=== PATIENT | male | born 1955 | race Caucasian/White ===

== ENCOUNTER 2023-05-01 07:45 | Outpatient (RCR) | payer OTHER, SELFPAY ==
--- NOTE | 2023-05-03 | CR1_ITS ---
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
== END 2023-05-03 14:48 | disposition home or self-care (01) ==
LOC: CR 07:45
DX: Z95.811 Presence of heart assist device (principal)
CPT/HCPCS: 93798

== ENCOUNTER 2023-06-28 07:03 | Outpatient (RCR) | payer OTHER, SELFPAY ==
--- NOTE | 2023-05-11 08:11 | CR1_ITS ---
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
--- NOTE | 2023-06-08 13:04 | CR1_ITS ---
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
== END 2023-06-28 07:44 | disposition home or self-care (01) ==
LOC: CR 07:03
DX: Z95.811 Presence of heart assist device (principal)
CPT/HCPCS: 93798

== ENCOUNTER 2023-11-10 07:17 | Outpatient (RCR) | payer OTHER, SELFPAY ==
--- NOTE | 2023-07-27 08:43 | CR1_ITS ---
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
--- NOTE | 2023-08-23 15:50 | CR1_ITS ---
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
--- NOTE | 2023-09-22 10:29 | CR1_ITS ---
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
--- NOTE | 2023-10-23 14:42 | CR1_ITS ---
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
== END 2023-11-10 14:20 | disposition home or self-care (01) ==
LOC: CR 07:17
DX: Z95.811 Presence of heart assist device (principal)
CPT/HCPCS: 93798

== ENCOUNTER 2023-12-16 12:50 | Emergency (ER) | payer OTHER, SELFPAY ==
[2023-12-16 12:51] VITALS: PULSE 69; RESP 24; TEMP 36.6; O2SAT 90; BMI 37.7
--- OUTSIDE RECORDS SUMMARY | 2023-12-16 12:52 | XMS_ITS | CCD ---
Author Name Unknown Address [address] [place] [address] Organization [facility] Care Team Providers Care Bulldozer/Loader/Compactor/Scraper Name Role Phone RADHA FERNANDEZ Referring Unavailable HENRY SEGURA Primary Care Unavailable Henry Segura Primary Care Provider MISC, DR FONSECA Admitting Unavailable MISC, DR FONSECA Attending Unavailable MISC, DR FONSECA Primary Care Unavailable MISC, DR FONSECA Consulting Unavailable MISC, DR FONSECA Admitting Unavailable MISC, DR FONSECA Attending Unavailable MISC, DR FONSECA Primary Care Unavailable MISC, DR FONSECA Consulting Unavailable Medications Current Medications Medication Drug Class(es) Dates Sig (Normalized) Sig (Original) allopurinol 100 mg oral tablet (1 source) Xanthine Oxidase Inhibitor take 2 tablets by mouth once daily in the evening allopurinol (ZYLOPRIM) 100 MG tablet Take 200 mg by mouth every evening 0 Active amiodarone hydrochloride 200 mg oral tablet (1 source) Antiarrhythmic take 1 tablet by mouth once daily amiodarone (CORDARONE) 200 MG tablet Take 200 mg by mouth daily. 0 Active aspirin 81 mg oral tablet (1 source) Platelet Aggregation Inhibitor, Nonsteroidal Anti-inflammatory Drug take 1 tablet by mouth once daily in the evening aspirin 81 MG tablet Take 81 mg by mouth every evening 0 Active atorvastatin 40 mg oral tablet (1 source) HMG-CoA Reductase Inhibitor take 1 tablet by mouth once daily in the evening atorvastatin (LIPITOR) 40 MG tablet Take 40 mg by mouth every evening 0 Active carvedilol 25 mg oral tablet (1 source) alpha-Adrenergic Ngoc, beta-Adrenergic Ngoc take 1 tablet by mouth twice daily at mealtime carvedilol (COREG) 25 MG tablet Take 25 mg by mouth 2 times daily (with meals) 0 Active cholecalciferol 5000 unt oral tablet (1 source) Vitamin D take 1 tablet by mouth twice daily Cholecalciferol (VITAMIN D3) 5000 UNITS TABS Take 1 each by mouth 2 times daily Taking 1000 units twice a day 0 Active citalopram 20 mg oral tablet (1 source) Serotonin Reuptake Inhibitor take 1 tablet by mouth twice daily citalopram (CELEXA) 20 MG tablet Take 20 mg by mouth 2 times daily 0 Active clopidogrel 75 mg oral tablet (1 source) P2Y12 Platelet Inhibitor Start: 01-08-2015 take 1 tablet by mouth once daily clopidogrel (PLAVIX) 75 MG tablet Take 1 tablet by mouth daily. 30 tablet 3 01/08/2015 Active diphenhydrAMINE-APAP , sleep, (TYLENOL PM EXTRA STRENGTH PO) (1 source) diphenhydrAMINE- APA P, sleep, (TYLENOL PM EXTRA STRENGTH PO) Take by mouth nightly 0 Active furosemide 80 mg oral tablet (1 source) Loop Diuretic take 1 tablet by mouth once daily furosemide (LASIX) 80 MG tablet Take 80 mg by mouth daily 0 Active 24 hr isosorbide mononitrate 30 mg extended release oral tablet (1 source) Nitrate Vasodilator take 1 tablet by mouth once daily in the evening isosorbide mononitrate (IMDUR) 30 MG CR tablet Take 30 mg by mouth every evening. 0 Active levothyroxine sodium 0.088 mg oral tablet (1 source) l-Thyroxine take 2 tablets by mouth once daily levothyroxine (SYNTHROID) 88 MCG tablet Take 88 mcg by mouth Daily One tab Monday thru Monday and 2 tabs Monday and monday 0 Active lisinopril 5 mg oral tablet (1 source) Angiotensin Converting Enzyme Inhibitor take 2.5 mg by mouth once daily in the evening lisinopril (PRINIVIL;ZESTRIL) 5 MG tablet Take 2.5 mg by mouth every evening 0 Active potassium chloride 20 meq powder for oral solution (1 source) take 20 mEq by mouth twice daily potassium chloride (KLOR-CON) 20 MEQ packet Take 20 mEq by mouth 2 times daily. 0 Active 1000 ml sodium chloride 9 mg/ml injection (1 source) Start: 10-10-2019 0.9 % sodium chloride infusion spironolactone 25 mg oral tablet (1 source) Aldosterone Antagonist take 1 tablet by mouth once daily in the evening spironolactone (ALDACTONE) 25 MG tablet Take 25 mg by mouth every evening 0 Active Completed/Discontinued Medications Medication Drug Class(es) Dates Sig (Normalized) Sig (Original) cephalexin 500 mg oral capsule (1 source) Cephalosporin Antibacterial Start: 09-09-2015 End: 10-10-2019 take 1 capsule by mouth twice daily cephALEXin (KEFLEX) 500 MG capsule Take 1 capsule by mouth 2 times daily 10 capsule 0 09/09/2015 10/10/2019 Discontinued (LIST CLEANUP) 1000 ml glucose 500 mg/ml injection (1 source) Start: 10-10-2019 End: 10-10-2019 dextrose 50 % IV solution Start: 10-10-2019 End: 10-10-2019 dextrose 50 % IV solution nitroglycerin 0.4 mg sublingual tablet (1 source) Nitrate Vasodilator Start: 01-08-2015 End: 10-10-2019 nitroGLYCERIN (NITROSTAT) 0.[address] 1 tablet under the tongue every 5 minutes as needed for Chest pain. 25 tablet 3 01/08/2015 10/10/2019 Discontinued traMADol hydrochloride 50 mg oral tablet (1 source) Opioid Agonist End: 10-10-2019 take 1 tablet by mouth every six hours as needed for pain traMADol (ULTRAM) 50 MG tablet Take 50 mg by mouth every 6 hours as needed for Pain. 0 10/10/2019 Discontinued (LIST CLEANUP) Problems Active Problems Problem Classification Problem Date Documented Date Episodic/Chronic Cardiac dysrhythmias (1 source) Atrial fibrillation; Translations: [Atrial fibrillation] Onset: 12-10-2013 12-10-2013 Chronic Conduction disorders (1 source) Automatic implantable cardiac defibrillator in situ; Translations: [AICD (automatic cardioverter/defibri llator) present] Onset: 06-08-2015 06-08-2015 Chronic Other circulatory disease (4 sources) Presence of heart assist device; Translations: [PRESENCE OF HEART ASSIST DEVICE] Onset: 08-03-2022 Chronic Unclassified (1 source) History of cardiac catheterization; Translations: [S/P cardiac cath] Onset: 06-08-2015 06-08-2015 Past or Other Problems Problem Classification Problem Date Documented Da te Episodic/Chronic Coronary atherosclerosis and other heart disease (1 source) History of placement of stent for coronary artery disease; Translations: [S/P drug eluting coronary stent placement] Onset: 06-08-2015 06-08-2015 Episodic Results Test Name Value Interpretation Reference Range Facil it SURGICAL PATHOLOGYon 021 SURGICAL PATHOLOGY Specimen #: [id number] Submitting Physician: Erika CHIACS MD FINAL DIAGNOSIS Left ventricular apex, assist device placement: - 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 COMMENT Microscopic examination shows a segment of myocardium which is transmural. The epicardium is unremarkable. The compact zone of the myocardium has been replaced by dense fibrous tissue. The trabecular myocardium shows thickened endocardium, which in the Movat stain shows endocardial fibroelastosis and is interpreted as an old healed myocardial infarction with organized thrombus leading to fibroelastosis of the endocardium. There is no evidence of inflammatory infiltrates, giant cells or granulomata consistent with myocarditis. ERR/kmr 03/30/2021 Contreras Hinojosa (L25) (Electronic Signature) ____ SPECIMEN SUBMITTED A: 2 SLIDES ([id number]) CLINICAL DATA None provided. Patient ID #: Date of Report: 03/31/2021 Date of Procedure: 03/24/2021 Date of Receipt: 03/24/2021 Submitted by: Erika CHICAS MD Location: Diagnostic interpretation performed at [facility], [address] [place] [address]. CLIA Number: [id number] Normal [facility] Reference Lab Comment on above: Performed By: #### S #### See report for performing lab information. CHLORIDE (POC)on 10-10-2019 Chloride [Moles/Vol] 103 mmol/L 98 - 107 mmol/L [employer], [email or web address] Creatinine W/GFR Point of Ca reon 10-10-2019 Creatinine [Mass/Vol] 1.5 mg/dL High 0.51 - 1.19 mg/dL [place], [place] GFR Non- 48 mL/min Low >60 [place] GFR/1.73 sq M predicted among non-blacks MDRD (S/P/Bld) [Vol rate/Area] 58 mL/min/{1.73_m2} Low >60 [place], [place] GFR/1.73 sq M predicted among non-blacks MDRD (S/P/Bld) [Vol rate/Area] [place], [place] Comment on above: Average GFR for 60-6 9 years old: 85 mL/min/1.73sq m Chronic Kidney Disease: <60 mL/min/1.73sq m Kidney failure: <15 mL/min/1.73sq m eGFR calculated using average adult body mass. Additional eGFR calculator available at: http://www.Jostle/multiple_crcl_2012.htm Diagnostic Cardiac Fur Remodeler Procedureon 10-10-2019 Doron, Renan Incoming Cardio Results From [facility]/ - 10/10/2019 2:50 PM EST Cardiac Diagnostic Report Demographics Patient HARMEET Mistry Date of Study 10/10/2019 Name Date of 1955 Gender Male Age 63 year(s) Race Room [id number] Height: 66 inch, 167.64 cm Number Corporate [id number] Weight: 224 pounds, 101.6 kg ID # Patient [id number] BSA: 2.1 m^2 BMI: 36.15 kg/m^2 Acct # MR # [id number] [facility] Referring # Physician Assisting Physician Additional Comments H&P reviewed and patient examined by performing physician prior to the procedure on 10/10/19 at 0900 No changes noted. If changes, see note below. Mallampati Classification 2 / ASA Classification III : per Physician . Patient medications reviewed by Physician prior to procedure. Procedure Procedure Type: Diagnostic procedure: Rt & Lt Heart Cath, Coronary Angios, LVgram Complications: - No complication Indications: - Angina - Unstable - Previous stent placement - Cardiomyopathy Conclusions Procedure Summary Patent LAD stent. Minimal CAD. Severely impaired ventricular function. Severe pulmonary hypertension. Recommendations Medical therapy as needed. Risk factor modification. Signature - - Angiographic Findings Cardiac Arteries and Lesion Findings LMCA: Normal 0% stenosis. LAD: Mild irregularities 20-30%.with patent proximal stent LCx: Mild irregularities 10-20%. RCA: Mild irregularities 20-30%. Coronary Tree Dominance: Left LV Analysis LV function assessed as:Abnormal. Ejection Fraction + --------+--- + !Method !EF%! + --------+--- + !LV gram !15 ! + --------+--- + LV Segment Contractility 1 - Normal 3 - Mild 5 - Severe 7 - Dyskinesis hypokinesis hypokinesis 2 - 4 - Moderate 6 - Akinesis 8 - Aneurysm Hypokinesis hypokinesis Procedure Data Procedure Start Time: 10/10/2019 12:43. The procedure was explained in detail to the patient. Risks, complications and alternative treatments were reviewed. Written consent was obtained. Diagnostic Cath Status: Urgent Entry Locations - Retrograde Percutaneous access was performed through the Right Femoral vein. A 7 Fr sheath was inserted. Hemostasis was successfully obtained using Manual Compression. - Retrograde Percutaneous access was performed through the Right Femoral artery. A 6 Fr sheath was inserted. Hemostasis was successfully obtained using Mynx (Access). Procedure Medications: - Lidocaine HCl 1% 10mg/ml S.Q. 20 ml. - Versed I.V. 2 mg. - Fentanyl I.V. 50 mcg. Catheters and Wires: - 7F Pulmonary Wedge Pressure Catheter was used for Right heart cath. - 6F Catheter JL 4 was used for Left coronary angiography. - 6F Catheter JR 4 was used for Left ventriculography. - 6F Catheter JR 4 was used for Right coronary angiography. Contrast Material: - Optiray 13434 ml Fluoroscopy Time: Diagnostic: 3:42 minutes. Total: 3:42 minutes. Estimated Blood Loss: 10 ml. Medical History Allergies - *No Known Allergies. Risk Factors The patient risk factors include:treated hypercholesterolemia, treated hypertension, untreated diabetes mellitus, last creatinine: 1.5 mg/dl, creatinine clearance: 73.38 ml/min and former tobacco use. Admission Data Admission Date: 10/10/2019 Admission Status: Outpatient. -The patient's anginal syndrome was assessed as CCS III according to the Swain clinical classification. Hemodynamics Condition: Baseline Room Air Estimated: 238.36Heart Rate: 60 bpm Oxygen Saturation +--------+-----+----+ -+---+ + !Location!pCO2 !pO2 !% Saturation !Hgb!O2 Content ! +--------+-----+----+ -+---+ + !FA ! ! !88.9 ! ! ! +--------+-----+----+ -+---+ + !RA ! ! !55 ! ! ! +--------+-----+----+ -+---+ + !PA ! ! !54.9 ! ! ! +--------+-----+----+ -+---+ + Pressure +-----+ + !Site !Pressure ! +-----+ + !AO !94/55 (71) ! +-----+ + !AO !97/57 (74) ! +-----+ + !LV ! ,21 ! +-----+ + !LV ! ,20 ! +-----+ + !PA ! (37) ! +-----+ + !PCW ! (23) ! +-----+ + !RA !10/28 (9) ! +-----+ + !RV !60/8 ,11 ! +-----+ + Cardiac Output +------+ + +---- + !Method!CO (l/min) !CI (l/min/m2) !SV (ml) ! +------+ + +---- + !Pat !3.6 !1.7 !59.62 ! +------+ + +---- + Valve Gradients and Areas + +--------+ --------+--------+--- ------+ +--- + !Valve !Peak !Mean !Area !Index !Flow !Source ! + +--------+ --------+--------+--- ------+ +--- + !Aortic !0 !0 ! ! !280.59 !Pat ! + +--------+ --------+--------+--- ------+ +--- + !Aortic !0 !0 ! ! ! ! ! + +--------+ --------+--------+--- ------+ +--- + Shunts Oxygen Values O2 Bsoguczd505.48O2 Devexoonfxp873.36 Flows (l/min) Qs3.62 Vascular Resistance + ------+-------+------ -+------+------+----- ----+------- + !CO method !TSVR !SVR !TPVR !PVR !TPVR/TSVR!PVR/SVR! + ------+-------+------ -+------+------+----- ----+------- + !Qp or Qs !1633.29!1444.75! ! ! ! ! + ------+-------+------ -+------+------+----- ----+------- + !Pat !1642.36!1452.78!831. 25!315.28!0.51 !0.22 ! + ------+-------+------ -+------+------+----- ----+------- + Imagiin. [facility] [place] [place] Cardiac Diagnostic Report Demographics Patient HARMEET Mistry Date of Study 10/10/2019 Name Date of 1955 Gender Male Age 63 year(s) Race Room [id number]^CLIF Height: 66 inch, 167.64 cm Number Corporate [id number] Weight: 224 pounds, 101.6 kg ID # Patient [id number] BSA: 2.1 m^2 BMI: 36.15 kg/m^2 Acct # MR # [id number] Performing Radha Fernandez Physician Referring # Physician Assisting Physician Additional Comments H&P reviewed and patient examined by performing physician prior to the procedure on 10/10/19 at 0900 No changes noted. If changes, see note below. Mallampati Classification 2 / ASA Classification III : per Physician . Patient medications reviewed by Physician prior to procedure. Procedure Procedure Type: Diagnostic procedure: Rt & Lt Heart Cath, Coronary Angios, LVgram Complications: - No complication Indications: - Angina - Unstable - Previous stent placement - Cardiomyopathy Conclusions Procedure Summary Patent LAD stent. Minimal CAD. Severely impaired ventricular function. Severe pulmonary hypertension. Recommendations Medical therapy as needed. Risk factor modification. Signature - - Angiographic Findings Cardiac Arteries and Lesion Findings LMCA: Normal 0% stenosis. LAD: Mild irregularities 20-30%.with patent proximal stent LCx: Mild irregularities 10-20%. RCA: Mild irregularities 20-30%. Coronary Tree Dominance: Left LV Analysis LV function assessed as:Abnormal. Ejection Fraction + --------+---+ !Method !EF%! + --------+---+ !LV gram !15 ! + --------+---+ LV Segment Contractility 1 - Normal 3 - Mild 5 - Severe 7 - Dyskinesis hypokinesis hypokinesis 2 - 4 - Moderate 6 - Akinesis 8 - Aneurysm Hypokinesis hypokinesis Procedure Data Procedure Start Time: 10/10/2019 12:43. The procedure was explained in detail to the patient. Risks, complications and alternative treatments were reviewed. Written consent was obtained. Diagnostic Cath Status: Urgent Entry Locations - Retrograde Percutaneous access was performed through the Right Femoral vein. A 7 Fr sheath was inserted. Hemostasis was successfully obtained using Manual Compression. - Retrograde Percutaneous access was performed through the Right Femoral artery. A 6 Fr sheath was inserted. Hemostasis was successfully obtained using Mynx (Access). Procedure Medications: - Lidocaine HCl 1% 10mg/ml S.Q. 20 ml. - Versed I.V. 2 mg. - Fentanyl I.V. 50 mcg. Catheters and Wires: - 7F Pulmonary Wedge Pressure Catheter was used for Right heart cath. - 6F Catheter JL 4 was used for Left coronary angiography. - 6F Catheter JR 4 was used for Left ventriculography. - 6F Catheter JR 4 was used for Right coronary angiography. Contrast Material: - Optiray 02615 ml Fluoroscopy Time: Diagnostic: 3:42 minutes. Total: 3:42 minutes. Estimated Blood Loss: 10 ml. Medical History Allergies - *No Known Allergies. Risk Factors The patient risk factors include:treated hypercholesterolemia, treated hypertension, untreated diabetes mellitus, last creatinine: 1.5 mg/dl, creatinine clearance: 73.38 ml/min and former tobacco use. Admission Data Admission Date: 10/10/2019 Admission Status: Outpatient. -The patient's anginal syndrome was assessed as CCS III according to the Swain clinical classification. Hemodynamics Condition: Baseline Room Air Estimated: 238.36Heart Rate: 60 bpm Oxygen Saturation +--------+-----+----+ -+---+ + !Location!pCO2 !pO2 !% Saturation !Hgb!O2 Content ! +--------+-----+----+ -+---+ + !FA ! ! !88.9 ! ! ! +--------+-----+----+ -+---+ + !RA ! ! !55 ! ! ! +--------+-----+----+ -+---+ + !PA ! ! !54.9 ! ! ! +--------+-----+----+ -+---+ + Pressure +-----+ + !Site !Pressure ! +-----+ + !AO !94/55 (71) ! +-----+ + !AO !97/57 (74) ! +-----+ + !LV !96/13 ,21 ! +-----+ + !LV !96/ ,20 ! +-----+ + !PA !58/23 (37) ! +-----+ + !PCW !24 (23) ! +-----+ + !RA !12/9 (9) ! +-----+ + !RV !60/8 ,11 ! +-----+ + Cardiac Output +------+ + +---- + !Method!CO (l/min) !CI (l/min/m2) !SV (ml) ! +------+ + +---- + !Pat !3.6 !1.7 !59.62 ! +------+ + +---- + Valve Gradients and Areas + +--------+ --------+--------+--- ------+ +--- + !Valve !Peak !Mean !Area !Index !Flow !Source ! + +--------+ --------+--------+--- ------+ +--- + !Aortic !0 !0 ! ! !280.59 !Pat ! + +--------+ --------+--------+--- ------+ +--- + !Aortic !0 !0 ! ! ! ! ! + +--------+ --------+--------+--- ------+ +--- + Shunts Oxygen Values O2 Hyuhssfu500.48O2 Gqmvarcbjro601.36 Flows (l/min) Qs3.62 Vascular Resistance + ------+-------+------ -+------+------+----- ----+-------+ !CO method !TSVR !SVR !TPVR !PVR !TPVR/TSVR!PVR/SVR! + ------+-------+------ -+------+------+----- ----+-------+ !Qp or Qs !1633.29!1444.75! ! ! ! ! + ------+-------+------ -+------+------+----- ----+-------+ !Pat !1642.36!1452.78!831. 25!315.28!0.51 !0.22 ! + ------+-------+------ -+------+------+----- ----+-------+ [place], [place] Hemoglobin and hematocrit, b loodon 10-10-2019 Hematocrit (Bld) [Volume fraction] 42 % 41 - 53 % [place] Hemoglobin (Bld) [Mass/Vol] 14.3 g/dL 13.5 - 17.5 g/dL [place] Otheron 10-10-2019 Interpretation and review of laboratory results Abnormal [place], [place] POC Glucose Fingerstickon Glucose [Mass/Vol] 77 mg/dL 75 - 110 mg/dL [place] Glucose [Mass/Vol] 116 mg/dL High 75 - 110 mg/dL [place] Interpretation and review of laboratory results Abnormal [place] POCT Glucoseon 10-10-2019 Glucose [Mass/Vol] 65 mg/dL Low 74 - 100 mg/dL [place] POTASSIUM (POC)on 10-10-2019 Potassium [Moles/Vol] 4.3 mmol/L 3.5 - 4.5 mmol/L [place] Platelet Counton 10-10-2019 Platelets (Bld) [#/Vol] 165 10*3/uL Normal 138-453 [facility] Comment on above: Performed By: #### P LT #### [facility] [email or web address] [address] [place] [id number] Exhibit Carpenter: Smith Marquez MD Platelet counton 10-10-2019 Platelets (Bld) [#/Vol] 165 10*3/uL [place] SODIUM (POC)on 10-10-2019 Sodium [Moles/Vol] 139 mmol/L 138 - 146 mmol/L [place], [place] Vital Signs Date Time Vital Sign Value Performing Clinician Catrina carranza 10-10-2019 16:00-0500 BP Diastolic 78 mm[Hg] [facility] [place] 10-10-2019 16:00-0500 BP Systolic 112 mm[Hg] [facility] [place] 10-10-2019 16:00-0500 Pulse (Heart Rate) 61 /min [facility] [place] 10-10-2019 16:00-0500 Pulse Oximetry 98 % [facility] , [place] 10-10-2019 16:00-0500 Respiratory Rate 17 /min [facility], [place] 10-10-2019 10:30-0500 BMI (Body Mass Index) 36.15 kg/m2 [facility], [place] 10-10-2019 10:30-0500 Body Temperature 97.39 [degF] [facility], [place] 10-10-2019 10:30-0500 Body weight 101.61 kg [facility] , [place] 10-10-2019 10:30-0500 Height 167.6 cm [facility] , [place] Encounters Encounter Date Encounter Type Care Provider Facility Start: 03-08-[address] DOCTOR BLANTON Facility :[facility] Start: 08-03-2022 End: 11-08-[address] DOCTOR BLANTON Facility: Start: 10-10-2019 End: 10-11-2019 Patient encounter procedure RADHA FERNANDEZ [facility] Start: 10-10-2019 End: 10-10-2019 Subsequent hospital visit by physician [place] [facility] Rm A [facility] Comment on above: Arrived Procedures Date Procedure Procedure Detail Performing Clinician Start: 10-11-2019 DIET NPO, SPECIFIED TIME TARNAYE JIM Start: 10-10-2019 COAL YARD SUPERVISOR REPORT TARNAYE STEINER Start: 10-10-2019 Glucose blood reagen t strip TARIF JIM Start: 10-10-2019 COAL YARD SUPERVISOR REPORT [facility] Start: 10-10-2019 R & l hrt cath w/njx l ventriculog img s&i TARNAYE JIM Start: 10-10-2019 Glucose blood reagen t strip Radha Fernandez Work Phone: Start: 10-10-2019 COAL YARD SUPERVISOR REPORT [facility] Start: 10-10-2019 Blood count platelet automated TARIF JIM Start: 10-10-2019 Blood count hemoglobin TARIF JIM Start: 10-10-2019 Chloride other source T ARIF JIM Start: 10-10-2019 CREATININE W/GFR POI NT OF CARE TARIF JIM Start: 10-10-2019 Gluc bld gluc mntr d ev cleared fda spec home use TARNAYE FERNANDEZ Start: 10-10-2019 Potassium serum plasma/whole blood TARNAYE FERNANDEZ Start: 10-10-2019 Sodium serum plasma or whole blood RADHA FERNANDEZ Start: 10-10-2019 DIAGNOSTIC CARDIAC C ATH LAB PROCEDURE Radha Fernandez Work Phone: Start: 10-10-2019 FULL CODE RADHA SALTER Start: 10-10-2019 POC CHEMISTRY (NA,K,ICA,GLU,CALC HCT/HGB,LACTATE,CREA,CL) RADHA FERNANDEZ Start: 10-10-2019 VERIFY INFORMED CONSENT RADHA FERNANDEZ Start: 10-10-2019 Glucose blood reagen t strip Radha Hernándezn Work Phone: Start: 10-10-2019 Blood count platelet automated Radha Patel [employer] Work Phone: Start: 10-10-2019 Blood count hemoglobin Tarif A [employer] Work Phone: Start: 10-10-2019 Chloride [Moles/Vol] Ta rif A [employer] Work Phone: Start: 10-10-2019 CREATININE W/GFR POI NT OF CARE Tarnaye Fernandez Work Phone: Start: 10-10-2019 Gluc bld gluc mntr d ev cleared fda spec home use Tarif A Jim Work Phone: Start: 10-10-2019 Potassium [Moles/Vol] T arif A [employer] Work Phone: Start: 10-10-2019 Sodium [Moles/Vol] Maryellen f A [employer] Work Phone: Plan of Treatment Date Care Activity Detail Author Start: 10-10-2020 Creatinine monitoring Creatinine mon itoring [place], [place] Start: 10-10-2020 Potassium monitoring Potassium monit [place]ing [place] Start: 05-12-2019 Annual Wellness Visi t (AWV) Annual Wellness Visit (AWV) [place], [place] Start: 2006 Colon cancer screen colonoscopy Colon cancer screen colonoscopy [place], [place] Start: 2006 Shingles Vaccine (1 of 2) Shingles Vaccine (1 of 2) [place], [place] Start: 1996 Diabetes screen Diabetes screen [place], [place] Start: 1971 HIV screen HIV screen [place], [place] Start: 1967 DTaP/Tdap/Td vaccine (1 - Tdap) DTaP/Tdap/Td vaccine (1 - Tdap) [place], [place] Start: 1966 Lipid screen Lipid screen [place], [place] Start: 1956 Hepatitis C screen Hepatitis C scree n [place], [place] Start: 1956 TSH testing TSH testing [place], [place] Payers Date Payer Category Payer Unknown [id number] 2018 Private Health Insurance [id number] 2014 Medicare [id number] 2014 Medicare xxxxxxxxxxx [id number] 1959 Medicare [id number] 1955 Unknown [id number] 1955 Unknown [id number] 1955 Unknown [id number] Social History Date Type Detail Facility Start: 10-10-2019 Tobacco smoking stat us [facility] Former smoker [place], [place] Start: 10-10-2019 Alcohol intake Current drinke r of alcohol (finding) [place] Start: 12-10-2013 Tobacco Comment quit 2000 [place], [place] Start: 10-10-2019 Alcohol Comment OCCASIONAL [place], [place] Sex Assigned At Not on file [place], [place] Summary Purpose Family History No Family History Records FoundNo Family History Records FoundNo Family History Records Found Advance Directives No Advanced Directives Records FoundDocuments on File Type Date Recorded Patient Parent Partner Expl anation Advance Directives and Living Will Power of Bereavement Program Coordinator Latest Code Status on File Code Status Date Activated Date Inactivated Comments Full Code 10/10/2019 10:15 AM Full Code 09/09/2015 5:55 PM 09/09/2015 9:44 PM Full Code 09/09/2015 1:57 PM 09/09/2015 5:55 PM Full Code 09/09/2015 1:56 PM 09/09/2015 1:57 PM Full Code 06/08/2015 12:13 PM 06/09/2015 3:10 AM Discharge Instructions * Instructions* Chelle Scott RN - 10/10/2019 Discharge Instructions for angiogram Home Care Ok to shower in AM. Discontinue band aid in AM. Do not apply further band aids. Keep clean, dry and open to air. No powder or lotion. Do not soak in a pool or tub and do not swim for one week. If there is any bleeding at the catheter site, apply firm pressure with your hands until the bleeding stops. If bleeding continues after 3 minutes call 911. If there is any swelling or firm areas at your puncture site, this could be bleeding under the skin(hematoma), and if you have any concerns seek help immediately. Drink plenty of fluids after the test. This will flush the x-ray dye from your system. Return to your normal diet. The sedative will make you sleepy. Rest until the effects have worn off. Ask your doctor when you will be able to return to work. Avoid heavy lifting objects greater than 10 pounds, physically demanding activities, and sexual activity for 5-7 days. Your activity will also depend upon where the catheter was inserted: Do not sit for long periods oftime. Try to change positions frequently. Medications If advised by your doctor, resume taking your normal medicines. Use acetaminophen (Tylenol) for pain relief. Do not take metformin (Glucophage) or glyburide and metformin (Glucovance) for 48 hours after the test. If you had to stop taking these medications before the procedure, ask your doctor when you can resume taking them: If youAnti-inflammatory drugs (eg, ibuprofen ) Blood thinners, such as warfarin (Coumadin) Clopidogrel (Plavix) If you are taking medicines, follow these general guidelines: Take your medicine as directed. Do not change the amount or the schedule. Do not stop taking them without talking to your doctor. Do not share them. Know what the results and side effects. Report them to your doctor. Some drugs can be dangerous when mixed. Talk to a doctor or pharmacist if you are taking more than one drug. This includes pnoy-jcy-ztwusls medicine and herb or dietary supplements. Plan ahead for refills so you don't run out. Call Your Doctor If Any of the Following Occurs : Signs of infection, including fever and chills Redness, swelling, increasing pain, excessive bleeding, or any discharge from the catheter insertion site CALL 911 if you have symptoms including: Drooping facial muscles Changes in vision or speech Difficulty walking or using your limbs Change in sensation to affected leg, including numbness, feeling cold, or change in color Extreme sweating, nausea or vomiting Dizziness or lightheadedness Chest pain Rapid, irregular heartbeat Palpitations Cough, shortness of breath, or difficulty breathing Weakness or fainting If you think you have an emergency, CALL 911 . Coronary artery disease (CAD) occurs when plaque builds up in the arteries that bring oxygen-rich blood to your heart. Plaque is a fatty substance made of cholesterol, calcium, and other substances in the blood. This process is called hardening of the arteries, or atherosclerosis. What happens when you have coronary artery disease? Plaque may narrow the coronary arteries. Narrowed arteries cause poor blood flow. This can lead to angina symptoms such as chest pain or discomfort. If blood flow is completely blocked, you could have a heart attack. You can slow CAD and reduce the risk of future problems by making changes in your lifestyle. These include quitting smoking and eating heart-healthy foods. Treatments for CAD, along with changes in your lifestyle, can help you live a longer and healthier life. How can you prevent coronary artery disease? Do not smoke. It may be the best thing you can do to prevent heart disease. If you need help quitting, talk to your doctor about stop-smoking programs and medicines. These can increase your chances of quitting for good. Be active. Get at least 30 minutes of exercise on most days of the week. Walking is a good choice. You also may want to do other activities, such as running, swimming, cycling, or playing tennis or team sports. Eat heart-healthy foods. Eat more fruits and vegetables and less foods that contain saturated and trans fats. Limit alcohol, sodium, and sweets. Stay at a healthy weight. Lose weight if you need to. Manage other health problems such as diabetes, high blood pressure, and high cholesterol. Talk to your doctor about taking a daily aspirin. Manage stress. Stress can hurt your heart. To keep stress low, talk about your problems and feelings. Don't keep your feelings hidden. How is coronary artery disease treated? Your doctor will suggest that you make lifestyle changes. For example, your doctor may ask you to eat healthy foods, quit smoking, lose extra weight, and be more active. You will have to take medicines. Your doctor may suggest a procedure to open narrowed or blocked arteries. This is called angioplasty. Or your doctor may suggest using healthy blood vessels to create detours around narrowed or blocked arteries. This is called bypass surgery. Follow-up care is a lawler part of your treatment and safety. Be sure to make and go to all appointments, and call your doctor if you are having problems. It's also a good idea to know your test resultsand keep a list of the medicines you take. Where can you learn more? Go to [email or web address] and sign in to your [employer] account. Enter C643 in the Search Health Information box to learn more about Learning About Coronary Artery Disease (CAD). If you do not have an account, please click on the Sign Up Now link. [employer] Care instructions adapted under license by [employer]. This care instruction is for use with your licensed healthcare professional. If you have questions about amedical condition or this instruction, always ask your healthcare professional. [employer] disclaims any warranty or liability for your use of this information. Content Version: 10.6.473781; Current as of: January 09, 2015 Discharge Instructions SEDATION / ANALGESIA INFORMATION / HOME GOING ADVICE You have received the sedation/analgesia medication during your visit Sedation/analgesia is used during short medical procedures under controlled supervision. The medication will produce a strong relaxation. You will be able to hear, speak and follow instructions, but your memory and alertness will be decreased. You will be able to swallow and breathe on your own. During sedation/analgesia your blood pressure,heart and breathing will be watched closely. After the procedure, you may not remember what was said or done. You may have the following effects from the medication. Drowsiness, dizziness, sleepiness or confusion. Difficulty remembering or delayed reaction times. Loss of fine muscle control or difficulty with your balance especially while walking. Difficulty focusing or blurred vision. You may not be aware of slight changes in your behavior and/or your reaction time because of the medication used during the procedure. Therefore you should follow these instructions. Have someone responsible help you with your care. Do not drive for 24 hours. Do not operate equipment for 24 hours (lawnmowers, power tools, kitchen accessories, stove). Do not drink any alcoholic beverages for a minimum of 24 hours. Do not make important personal, legal or business decisions for 24 hours. You may experience dizziness or lightheadedness. Move slowly and carefully, do not make sudden position changes. Drink extra amounts of fluids today. Increase your diet as tolerated (unless you have received specific instructions from your doctor). If you feel nauseated, continue with liquids until the nausea is gone. Notify your physician if you have not urinated within 8 hours after the procedure. Resume your medications unless otherwise instructed documented in this encounter History of Present Illness * Ingrid Monzon RN - 10/10/2019 11:[address] Ernst notified of glucose and creat with orders received * Roman Jimenez RN - 10/10/2019 9:30 AM EST Patient d/c via w/c with discharge paperwork * Ingrid Monzon RN - 10/10/2019 9:30 AM EST Patient admitted, consent signed and questions answered. Patient ready for procedure. Call light toreach with side rails up 2 of 2. Bilat groin hairs clipped. History and physical complete. documented in this encounter Additional Source Comments (unrecognized sect ion and content) No Status Records FoundNo Status Records FoundNo Status Records Found INFORMATION SOURCE (unrecogn ized section and content) DATE CREATED AUTHOR 10/14/2019 [facility] DATE CREATED AUTHOR AUTHOR'S ORGANIZ ATION 04/02/2021 [facility] DATE CREATED AUTHOR AUTHOR'S ORGANIZ ATION 03/11/2023 [facility] Reason for Visit (unrecogniz ed section and content) Status Reason Specialty Diagnoses / Procedures Referre d By Contact Referred To Contact Diagnoses Chest pain Procedures R [facility] [employer] [facility] [place] [place] [address] [facility] FOR RECORDS PERTAINING TO PATIENTS WHO ARE OR HAVE BEEN ENROLLED IN A CHEMICAL DEPENDENCY/SUBSTANCEABUSE PROGRAM, SOME INFORMATION MAY BE OMITTED. This clinical summary was aggregated from multiple sources. Caution should be exercised in using it in the provision of clinical care. This summary normalizes information from multiple sources, and as a consequence, information in this document may materially change the coding, format and clinical context of patient data. In addition, data may be omitted in some cases. CLINICAL DECISIONS SHOULD BE BASED ON THE PRIMARY CLINICAL RECORDS. [employer] [facility] provides no warranty or guarantee of the accuracy or completeness of information in this document.
--- NOTE | 2023-12-16 13:02 | XR_ITS ---
The [address] [address] Patient Name: JAVIER GA MRN: [id number] date: 1955 Sex: M Assigned Patient Location: ER Current Patient Location: ER Accession/Order Number: [id number] Exam Date: 12/16/2023 13:15 Report Date: 12/16/2023 14:33 At the request of: COLEEN FOFANA Procedure: XR cervical spine 2-3V CERVICAL SPINE AP LATERAL: 12/16/2023 1:15 PM EST Clinical Data: Atraumatic pain Comparison: No previous No prevertebral soft tissue prominence. No evidence of acute fracture or dislocation. Asymmetric distance between the odontoid peg and lateral masses of C1 with the distance a little wider on the left than the right. However, the lateral masses do not overhang C2 abnormally. This may be chronic or related to an element of spasm. Moderate DDD at C6-C7 with associated anterior greater than posterior spondylosis. Mild DDD at C7-T1 with modest associated anterior much greater than posterior spondylosis. Uncovertebral joint DJD at mid through lower cervical levels. No oblique films were ordered or performed. Still, there appears to be facet arthropathy at multiple levels. Either the spinous process at T1 is bifid or there is a subtle spina bifida. XR/XR cervical spine 2-3V IMPRESSION: 1. No distinct evidence of acute osseous process. 2. Some degenerative changes as described. Electronically authenticated by: MANDA ZEPEDA Date: 12/16/2023 14:33
--- NOTE | 2023-12-16 13:10 | ED.NECK1 ---
HPI - Neck Pain/Injury General Chief Complaint: Neck Pain/Injury Stated Complaint: NECK PAIN Time Seen by Provider: 12/16/23 12:52 Source: patient Mode of arrival: Wheelchair History of Present Illness HPI Narrative: 67-year-old male presents to Emergency Department for neck pain. He's had it for almost a week and there has been no injury. It's bilateral on the sides of his neck. It doesn't seem to radiate down his arms and there is been no trauma. It hurts to turn his head to the left or right. Related Data Previous Rx's Medication Instructions Recorded methocarbamol 500 mg tablet 500 mg PO Q8H PRN pain #20 tabs 12/16/23 Allergies Allergy/AdvReac Type Severity Reaction Status Date / Time No Known Drug Allergies Allergy Verified 12/16/23 12:57 Review of Systems ROS Narrative A ten point review of systems is negative except as noted above. Exam Narrative Exam Narrative: Nurses note and vital signs reviewed and patient is not hypoxic. General: The patient appears well and in no apparent distress. Patient is resting comfortably on cart. Skin: Warm, dry, no pallor noted. There is no rash noted. Head: Normocephalic, atraumatic Eye: Normal conjunctiva, no drainage Ears, Nose, Mouth, and Throat: oral mucosa is moist. Nares patent. Cardiovascular: LVAD device in place Respiratory: Patient is in no distress, no accessory muscle use, lungs are clear to auscultation, no wheezing, rales or rhonchi Back: non-tender; the neck is no bruise or rash. He has discomfort with turning his head to the left or right. Arms have full range of motion. GI: Normal bowel sounds, no tenderness to palpation, no masses appreciated. No rebound, guarding, or rigidity noted. Musculoskeletal: The patient has no evidence of calf tenderness, no pitting edema, symmetrical pulses noted bilaterally Neurological: A&O, normal speech Psychiatric: Cooperative Constitutional Vital Signs, click to edit/add: Last Vital Signs Temp 97.9 F 12/16/23 12:51 Pulse 69 12/16/23 12:51 Resp 24 12/16/23 12:51 Pulse Ox 90 L 12/16/23 12:51 O2 Del Method Room Air 12/16/23 12:51 Course Vital Signs Vital signs: Vital Signs Temperature 97.9 F 12/16/23 12:51 Pulse Rate 69 12/16/23 12:51 Respiratory Rate 12/16/23 12:51 Pulse Oximetry 90 L 12/16/23 12:51 Oxygen Delivery Method Room Air 12/16/23 12:51 Temperature 97.9 F 12/16/23 12:51 Pulse Rate 69 12/16/23 12:51 Respiratory Rate 12/16/23 12:51 Pulse Oximetry 90 L 12/16/23 12:51 Oxygen Delivery Method Room Air 12/16/23 12:51 MDM - Neck Pain/Injury MDM Narrative Medical decision making narrative: X-ray findings are discussed with patient and he is given IM Norflex and prescribed Robaxin. Treatment diagnosis and follow-up were discussed with the patient. Differential Diagnosis Differential diagnosis: Likely disc disorder of cervical region, cervical radiculopathy, cervical spondylosis and strain of neck muscle Imaging Data C-spine x-rays: Radiologist's impression: ITS Impressions Cervical Spine X-Ray 12/16/23 13:02 IMPRESSION: 1. No distinct evidence of acute osseous process. 2. Some degenerative changes as described. Electronically authenticated by: MANDA ZEPEDA Date: 12/16/2023 14:33 Discharge Plan Discharge Chief Complaint: Neck Pain/Injury Clinical Impression: Cervical pain Patient Disposition: Home, Self-Care Time of Disposition Decision: 14:42 Condition: Good Mode of Transportation: Private Vehicle Prescriptions / Home Meds: New methocarbamol 500 mg tablet 500 mg PO Q8H PRN (Reason: pain) Qty: 20 0RF Instructions: Acute Neck Pain (ED) Stand Alone Forms: Portal Instructions Referrals: Physician,Non-Staff, MD [Primary Care Provider] - 1 week
[2023-12-16] MEDS: ORPHENADRINE 60 MG/ 2 ML VIAL IM (14:48)
== END 2023-12-16 14:54 | disposition home or self-care (01) ==
PROVIDERS: Emergency Provider Emergency Medicine
DX: M54.2 Cervicalgia (principal); Z95.811 Presence of heart assist device
CPT/HCPCS: 72040; 96372; 99284; J2360